=== PATIENT | female | born 2000 | race Caucasian/White ===

== ENCOUNTER 2022-08-20 09:07 | Outpatient (CLI) | payer BC, SELFPAY ==
[2022-08-24 05:12] LABS: Progesterone 23.3 ng/mL (***)
== END 2022-08-20 09:08 | disposition home or self-care (01) ==
LOC: ANHLAB 09:10
PROVIDERS: PCP Physician Assistant Medical; Visit Provider Student in an Organized Health Care Education/Training Program
DX: O20.0 Threatened abortion (principal); Z3A.00 Weeks of gestation of pregnancy not specified
CPT/HCPCS: 36415; 84144; 84702

== ENCOUNTER 2022-08-27 10:41 | Outpatient (CLI) | payer BC, SELFPAY ==
--- NOTE | ~2022-08-27 | US_ITS ---
EXAMINATION: US OB <=14 wk fetus w TV DATE: 08/27/2022 11:15 INDICATION: Threatened . TECHNIQUE: Real-time transabdominal and transvaginal obstetric ultrasound. FINDINGS: Ultrasound dated 07/10/2019 There is a bicornuate uterus. The uterus measures 9 x 4.9 x 9.3 cm. There is an intrauterine gestatio nal sac, with pole identified. The crown rump length measures 1.62 cm, which correlates with a estimated gestational age of 8 weeks 0 days. No heart motions detected, compatible with demise. There is a subchorionic hemorrhage measuring 12 x 8 x 9 mm. The ovaries within normal limits. IMPRESSION: 1. Intrauterine gestational sac with pole which corresponds to a 8 week 0 day gestation. No fet al heart motions detected, compatible with demise. Recommend follow-up with serial quantitative beta-hCG levels and ultrasound as clinically indicated. 2: Small subchorionic hemorrhage measuring 12 x 8 x 9 mm. Reviewed, dictated and finalized at location B. IMPRESSION: 1. Intrauterine gestational sac with pole which corresponds to a 8 week 0 day gestation. No heart motions detected, compatible with demise. Recommend follow-up with serial quantitative beta-hCG levels and ultrasound as clinically indicated. 2: Small subchorionic hemorrhage measuring 12 x 8 x 9 mm.
== END 2022-08-27 10:42 ==
PROVIDERS: PCP Physician Assistant Medical; Visit Provider Student in an Organized Health Care Education/Training Program
DX: O20.0 Threatened abortion (principal); Z3A.00 Weeks of gestation of pregnancy not specified
CPT/HCPCS: 76801; 76817

== ENCOUNTER 2022-08-30 01:15 | Day surgery (SDC) | payer BC, SELFPAY ==
[2022-08-28 10:48] VITALS: BMI 18.8
--- NOTE | 2022-08-28 10:53 | PC.NURSE ---
Report to the Outpatient Waiting Room, entrance under the green pavilion located off [facility], at time 1400 on date 08/30/22. Planned Procedure Time: 1600. Time changes happen often and if your time is changed the preop area will call you the afternoon before. - You and your visitor will be asked to self-screen and do not enter if you have any COVID symptoms. - A mask is optional within the hospital at this time. Patients may have clear liquids (water, carbonated beverages, clear teas, apple juice) until 3 hours prior to surgery with a maximum of 20 ounces. - No food from midnight until time of surgery Take the following medications with a SIP of water the morning of surgery: NONE DO NOT STOP ANY OF YOUR OTHER PRESCRIPTION MEDICATIONS PRIOR TO SURGERY EXCEPT THE FOLLOWING Medications to discontinue per physician: VITAMINS Date to take last dose: NO MORE UNTIL AFTER SURGERY Please no make-up, nail peruvian, hairspray, perfume, deodorant, or body powder the day of surgery. No jewelry (including any body piercings) or valuables the day of surgery, leave them at home. Please take a shower or bath the night before, or the morning of, surgery with an antibacterial soap. Wear comfortable, loose fitting clothing. - Jewelry must be removed prior to entering the operating room. Rings and piercings that are not removed may be cut off. - The hospital will not accept responsibility for valuables. - Please leave all valuables, including medications, at home the day of surgery. If you are going home after surgery, a licensed after school driver must drive you home. - NO public transportation without another adult if you receive anesthesia. - We recommend that an adult stay with you for 24 hours following discharge. - We also recommend that you do not drive, make important decision, drink alcoholic beverages, or take any drugs that were not prescribed by your health care provider for at least 24 hours after your discharge time. Follow any additional instructions given to you from your surgeon. If you or anyone in your household have experienced Covid symptoms in the past week, please notify your surgeon or the nurse liaison at the phone number below for possible testing. Telephone instructions given to PT - KALEE GOMEZ and asked if any additional questions and then verbalized understanding. Patient advised to call surgeon office or pre surgery nurse liaison [phone] if any additional questions.
--- NOTE | 2022-08-30 07:44 | PM.IMHP ---
H&P: HPI History of Present Illness Date/Time: 08/30/22 07:44 Chief Complaint: spontaneous missed Narrative: ?22-year-old 010 who presents for suction D&C for missed .? Patient started having some light bleeding.? Patient states bleeding continuing and she reported to the emergency room.? Patient had a vaginal ultrasound that showed an intrauterine measuring 8 weeks with no heart tones.? Patient is asymptomatic today.? She reports some cramping but denies any bleeding.? She denies any fevers, chills, nausea, vomiting.? Patient's is complicated by bicornuate uterus. Review of Systems Review of Systems: All systems reviewed & are unremarkable except as noted in HPI and below PMFSH Past Medical History Medical History Anxiety Depression Encounter for Nexplanon removal 07/04/2022 PTSD (post-traumatic stress disorder) Surgical History Surgical History History of tonsillectomy [place] teeth extracted Family History Family History Mother Hypertension Breast cancer Diabetes mellitus Grandparent Breast cancer Father Diabetes mellitus Social History Social History Smoking status: Former smoker Tobacco type: e-cigarettes/vaping Alcohol intake: current Alcohol use details: VERY RARE WHEN NOT Substance use: never Substance use type: does not use Living arrangements: with friend(s) Additional living arrangements comments: BOYFRIEND Occupation/Education: occupation 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 Gender identity (if verbalized by the patient): Female Sexual Orientation (if Verbalized by the Patient): Straight or Heterosexual Spiritual care concerns: No Meds Home Medications and Allergies Home Medications Medication Instructions Recorded Confirmed Type prenat.vits,chito,icp-pxvz-zdser 1 tablet PO DAILY 07/04/22 08/28/22 History Allergies Allergy/AdvReac Type Severity Reaction Status Date / Time oxycodone Allergy Mild Nausea Verified 08/28/22 10:47 Exam Const: General: comfortable and no acute distress Resp: Effort & Inspection: normal respiratory effort Auscultation: clear to auscultation bilaterally Cardio: Rate: regular rate Rhythm: regular rhythm GI: Inspection: non-distended GI Palp: Yes Soft to palpation, No Tenderness to palpation present (GI) and No Guarding due to palpation present (GI) Auscultation: normal bowel sounds : External Female Exam: normal external appearance Speculum Exam - Vagina: normal appearance of the vagina Speculum Exam - Cervix: normal appearance of the cervix, Cervical os closed, Abnormal cervical discharge present and nontender Bimanual exam- vagina & uterus: normal bimanual exam, No Cervical tenderness present and non-tender Bimanual Exam- Adnexa, other: normal adnexae OB/external & speculum: no bleeding Skin: General skin exam: normal color Neuro: General: gait normal Speech: normal speech Extrem: General: normal to inspection Psych: Mental Status: mental status grossly normal Affect: normal affect Assessment and Plan Assessment and plan (1) Missed : Code(s): O02.1 - Missed Status: Acute Assessment and Plan: ? 22-year-old 010 who presents for follow-up after missed Patient started having some vaginal bleeding and presented to the emergency room ?previous records, images, labs reviewed Evaluation in the emergency room showed an intrauterine measuring 8 weeks with no cardiac activity Patient states all bleeding has stopped.? She reports some cramping Diagnosis of spontaneous missed discussed at length Patient grieving appropriately Management options di
--- NOTE | 2022-08-30 07:47 | WPDHPUPDATE1 ---
History and Physical Update Update Date/Time: 08/30/22 07:47 History and Physical has been reviewed, including an updated exam of the patient. There are NO changes in the patient's condition. Risks, benefits, and alternatives have been discussed and questions answered. Patient agrees to proceed with procedure.
[2022-08-30 14:30] VITALS: BP 95/63; PULSE 77; RESP 18; TEMP 36.7; O2SAT 100
[2022-08-30] MEDS: ACETAMINOPHEN 500 MG TABLET 1000 MG PO (14:30)
[2022-08-30 15:09] LABS: Hematocrit 40.1 % (37.0-47.0); Hemoglobin 13.8 g/dL (12.0-15.0)
--- NOTE | 2022-08-30 15:55 | WPDANESEPPF ---
Anes - Initial Pre Proc Eval Procedure: Operation Date: 08/30/22 16:00 Proposed Procedures p Suction Dilatation and Curettage - Samir Eric MD Date/Time: 08/30/22 15:55 Surgeon: Samir Eric MD Pre Op Diagnosis: missed AB Patient Data Age: 22 Gender: F Height: 1.55 m Weight: 46.1 kg Last Vital Signs Temp 36.7 C 08/30/22 14:30 Pulse 77 08/30/22 14:30 Resp 18 08/30/22 14:30 BP 95/63 L 08/30/22 14:30 Pulse Ox 100 08/30/22 14:30 O2 Del Method Room Air 08/30/22 14:30 Allergies Allergy/AdvReac Type Severity Reaction Status Date / Time oxycodone Allergy Mild Nausea Verified 08/28/22 10:47 Home Medications Medication Instructions Recorded Confirmed Type prenat.vits,chito,zxk-vyos-hbdit 1 tablet PO DAILY 07/04/22 08/28/22 History Laboratory Tests 08/30/22 14:44 Hgb 13.8 g/dL (12.0-15.0) Hct 40.1 % (37.0-47.0) Blood Type A Positive Antibody Screen Pending Screen Not Reportable Baby's Blood Type Not Reportable Baby's JEFFRY Not Reportable Doses of RhIg Required 0 Patient hx anesthesia problems: none Family hx anesthesia problems: none Results Review: All pre-operative results and documents have been reviewed as part of the pre-operative evaluation. [facility] Past Medical History Medical History Anxiety Depression Encounter for Nexplanon removal 07/04/2022 PTSD (post-traumatic stress disorder) Surgical History Surgical History History of tonsillectomy [place] teeth extracted Family History Family History Mother Hypertension Breast cancer Diabetes mellitus Grandparent Breast cancer Father Diabetes mellitus Social History Social History Smoking status: Former smoker Tobacco type: e-cigarettes/vaping Alcohol intake: current Alcohol use details: VERY RARE WHEN NOT Substance use: never Substance use type: does not use Living arrangements: with friend(s) Additional living arrangements comments: BOYFRIEND Occupation/Education: occupation 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 Gender identity (if verbalized by the patient): Female Sexual Orientation (if Verbalized by the Patient): Straight or Heterosexual Spiritual care concerns: No Anes - Eval Final PreProcedure Day of Procedure 08/30/22 15:55 Patient weight: normal Heart: regular rate and rhythm Lungs: clear to auscultation and normal air movement Airway: Mallampati scale class II Neurological: alert and oriented Last oral intake: >/= 8 hours ASA classification: II Emergent: no Anesthetic plan: proceed Anesthesia type and monitoring: general GIVS and standard monitoring Results Review: All pre-operative results and documents have been reviewed as part of the pre-operative evaluation. Informed Consent: The patient's anesthetic plan and its attendant risks and benefits were discussed with the patient/family/POA. Questions were solicited and answers provided to the satisfaction of the patient/family/POA.
[2022-08-30] MEDS: DOXYCYCLINE 100 MG/NS 100 ML 100 MG/100 ML BAG IVPB (16:24)
--- NOTE | 2022-08-30 16:52 | W.PM.PROC2 ---
Procedure Note - Detailed Date of Procedure 08/30/22 Pre-op Diagnosis missed AB Post-op Diagnosis Same Procedure Performed Suction Dilation & curettage Surgeon Samir Eric MD Anesthesia General Indications spontaneous missed on pelvic US Findings intrauterine products of conception Description of Procedure The patient was taken to the operating room after a missed had been noted on on transvaginal ultrasound. The risks, benefits and alternatives of the procedure were reviewed with the patient and informed consent was obtained. The patient was taken to the OR and anesthesia was noted to be adequate. The patient was placed in the dorsolithotomy position. Pelvic exam was performed with findings noted above. The patient was prepped and draped in the usual sterile fashion. Sterile speculum was placed in the vagina and the cervix was grasped with a tenaculum. The cervix was dilated further to allow for passage of a 8 mm suction curette. The 8 mm suction curette was gently advanced to the fundus, suction was activated, and the tip was rotated while being withdrawn to clear the uterus of products. This suction process was repeated 3 additional times due to the quantity of material in the uterus. The sharp curette was introduced and advanced to the fundus to remove any remaining products. The suction curette was reintroduced one final time to ensure all products had been removed. The tenaculum was removed. Good hemostasis was noted. Instrument, sponge, and sharp counts were correct. Patient tolerated the procedure well and was taken to the recovery room in stable condition. Estimated Blood Loss 10 Drains No Packing No Pathology Yes (products of conception ) Complications No immediate complications Condition Stable Disposition PACU [facility] Billing Surgery - Charge Forward: Surgery Billing
[2022-08-30 16:55] VITALS: BP 102/67; PULSE 69; RESP 15; O2SAT 100
[2022-08-30] MEDS: LACTATED RINGERS 1,000 ML 30 ML IV CONT (16:55)
[2022-08-30 17:25] VITALS: BP 98/62; PULSE 64
[2022-08-30] MEDS: KETOROLAC 30 MG/ML VIAL (*BKC) IV PUSH (17:29)
[2022-08-30 17:55] VITALS: BP 97/61; PULSE 60
--- NOTE | 2022-08-30 18:18 | SUR.PHASEII ---
1700: Blood type is A+. No Rhogam needed.
== END 2022-08-30 18:02 | disposition home or self-care (01) ==
PROVIDERS: PCP Physician Assistant Medical; Visit Provider Student in an Organized Health Care Education/Training Program
PROC: (CPT 59820; principal; 2022-08-30 16:00)
DX: O02.1 Missed abortion (principal); Q51.3 Bicornate uterus
CPT/HCPCS: 59820; 36415; 85014; 85018; 85461; 86850; 86900; 86901; 88305; A9270; J1885; J2250; J2704; J3010; J7120